=== PATIENT | female | born 1970 | race Caucasian/White ===

== ENCOUNTER 2017-07-15 21:37 | Emergency (ER) | payer MEDICAID ==
[2017-07-15] MEDS ORDERED: ONDANSETRON DISINTEGRATING 4 MG TAB PO ONE (22:07)
[2017-07-15] MEDS ORDERED: METOCLOPRAMIDE 10 MG/2 ML VIAL IVP ONE (22:16)
[2017-07-15] MEDS ORDERED: NS 1,000 ML IV ONE (22:16)
[2017-07-15] MEDS ORDERED: KETOROLAC 30 MG/1 ML SDV IVP ONE (22:16)
[2017-07-15] MEDS ORDERED: DEXAMETHASONE 10 MG/ML VIAL IVP ONE (22:16)
--- NOTE | 2017-07-15 22:16 | EDPHY ---
H & P Stated Complaint: Migraine 2 days, also noted weiht loss recently. HPI/ROS: HPI CHIEF COMPLAINT: Migraine headache x2 days. HISTORY OF PRESENT ILLNESS: This patient very pleasant 46-year-old female she has significant past medical history for migraine headaches as well as fibromyalgia. She presents emergency room with left-sided focal headache. She states has been present for 2 days. Feels exactly like her previous migraines. She has had nausea with it. Photophobia with the. She denies any neck pain stiff neck or fever. She tells me this feels exactly like her previous migraines. She usually takes Maxalt for her headaches. Addition she takes oxycodone. She describes it as throbbing left-sided posterior to her eye. No eye pain. She tells me this is where her migraine usually occur. Past Medical History: Migraine headaches, fibromyalgia Past Surgical History: No recent surgical history Social History: Denies daily use of drugs alcohol tobacco products. Family History: Noncontributory ROS REVIEW OF SYSTEMS: A comprehensive 10 point review of systems is otherwise negative aside from elements mentioned in the history of present illness. Exam Constitutional appears nontoxic, no meningeal signs on exam, triage nursing summary reviewed, vital signs reviewed, awake/alert. Eyes normal conjunctivae and sclera, EOMI, PERRLA. HENT neck is supple, normal inspection, atraumatic, moist mucus membranes, no epistaxis, neck supple/ no meningismus, no raccoon eyes. Respiratory clear to auscultation bilaterally, normal breath sounds, no respiratory distress, no wheezing. Cardiovascular rate normal, regular rhythm, no murmur, no edema, distal pulses normal. Gastrointestinal soft, non-tender, no rebound, no guarding, normal bowel sounds, no distension, no pulsatile mass. Genitourinary no CVA tenderness. Musculoskeletal no midline vertebral tenderness, full range of motion, no calf swelling, no tenderness of extremities, no meningismus, good pulses, neurovascularly intact. Skin pink, warm, & dry, no rash, skin atraumatic. Neurologic no meningeal signs, awake, alert and oriented x 3, AAOx3, moves all 4 extremities equally, motor intact, sensory intact, CN II-XII intact, normal cerebellar, normal vision, normal speech. Psychiatric normal mood/affect. Heme/Lymph/Immune no lymphadenopathy. Differential Diagnosis: Includes but is not limited to in a particular order, migraine headache, cluster headache, tension headache, doubt intracranial bleed , doubt brain tumor Medical Decision Making: Plan for this patient IV establishment IV fluid bolus , migraine cocktail, check basic blood work. I do not feel this patient needs any imaging at this time. Re-evaluate after migraine medicine. Includes Reglan , Decadron, Toradol, Benadryl. Patient is an ibuprofen allergy but is fine with Toradol. Re-evaluation: 2343: On re-evaluation. Patient resting comfortably. Her neurological exam is unremarkable. Resting comfortably. She feels much better after migraine cocktail. She now tells me her headache is 1/10. She has normal neurological exam. Encouraged to follow up with primary care doctor and neurologist. Return emergency room if there is worsening symptoms questions or concerns she understands. Source: Patient - Personal History Current Tetanus/Diphtheria Vaccine: Yes Current Tetanus Diphtheria and Acellular Pertussis (TDAP): Yes Tetanus Vaccine Date: 2014 - Medical/Surgical History Hx Asthma: No Hx Chronic Respiratory Disease: No Hx Diabetes: No Hx Cardiac Disease: No Hx Renal Disease: No Hx Cirrhosis: No Hx Alcoholism: No Hx HIV/AIDS: No Hx Splenectomy or Spleen Trauma: No Other PMH: back spasms, R tennis elbow, endometriosis, , lump removal, migraines, compression fracture/back, fibromyalgia. - Social History Smoking Status: Heavy smoker Constitutional: Initial Vital Signs Temperature (C) 36.6 C 07/15/17 21:39 Heart Rate 79 07/15/17 21:39 Respiratory Rate 18 07/15/17 21:39 Blood Pressure 135/79 H 07/15/17 21:39 O2 Sat (%) 99 07/15/17 21:39 O2 Delivery Mode Room Air Allergies/Adverse Reactions: fentanyl Allergy (Intermediate, Verified 07/15/17 21:42) Other-Enter Comments ciprofloxacin [From Cipro] Allergy (Mild, Verified 07/15/17 21:42) Rash ciprofloxacin HCl [From Cipro] Allergy (Verified 07/15/17 21:42) codeine [Codeine] Allergy (Verified 07/15/17 21:42) Home Medications: Medication Instructions Recorded traZODone [traZODONE 50MG (RX)] 100 mg PO HS 03/31/12 Rizatriptan Benzoate [Maxalt] 10 mg PO 06/15/12 Albuterol Sulfate 07/15/17 Amitriptyline HCl 07/15/17 EPIPEN 07/15/17 Ibuprofen 07/15/17 Iron 07/15/17 oxyCODONE IR 07/15/17 Medical Decision Making - Data Points Medications Given: Discontinued Medications Dexamethasone (Decadron Injection) 10 mg IVP EDNOW ONE Stop: 07/15/17 22:17 Last Admin: 07/15/17 22:43 Dose: 10 mg Diphenhydramine HCl (Benadryl Injection) 50 mg IVP EDNOW ONE Stop: 07/15/17 22:17 Last Admin: 07/15/17 22:44 Dose: 50 mg Sodium Chloride (Ns) 1,000 mls @ 0 mls/hr IV ONCE ONE; Wide Open PRN Reason: Protocol Stop: 07/15/17 22:17 Last Admin: 07/15/17 22:45 Dose: 1,000 mls Ketorolac Tromethamine (Toradol) 30 mg IVP EDNOW ONE Stop: 07/15/17 22:17 Last Admin: 07/15/17 22:45 Dose: 30 mg Metoclopramide HCl (Reglan Injection) 10 mg IVP EDNOW ONE Stop: 07/15/17 22:17 Last Admin: 07/15/17 22:45 Dose: 10 mg Ondansetron HCl (Zofran Odt) 4 mg PO EDNOW ONE Stop: 07/15/17 22:08 Last Admin: 07/15/17 22:09 Dose: 4 mg Departure - Departure Disposition: Home, Routine, Self-Care Clinical Impression: Migraine headache Qualifiers: Migraine type: other Status migrainosus presence: without status migrainosus Intractability: not intractable Qualified Code(s): G43.809 - Other migraine, not intractable, without status migrainosus Condition: Good Instructions: Migraine Headache (ED) Additional Instructions: 1. Please follow up with her primary care doctor. 2. Return emergency room if develops worsening symptoms questions or concerns. Referrals: Radames Wong MD [Primary Care Provider] - As per Instructions
[2017-07-15 23:59] VITALS: BP 101/72; PULSE 71; RESP 16; TEMP 98.1; O2SAT 97
== END 2017-07-15 23:56 | disposition home or self-care (01) ==
DX: G43.809 Other migraine, not intractable, without status migrainosus (principal); F17.200 Nicotine dependence, unspecified, uncomplicated; E86.9 Volume depletion, unspecified
CPT/HCPCS: 96374; J1100; J1200; J1885; J2765

== ENCOUNTER 2019-04-14 12:08 | Emergency (ER) | payer MEDICAID | END 2019-04-14 14:41 | disposition home or self-care (01) ==